=== PATIENT | female | born 1980 | race Caucasian/White ===

== ENCOUNTER 2016-04-19 13:17 | Emergency (ER) | payer SELFPAY ==
[~2016-04-19] VITALS: Ht 167.6 cm; Wt 90.9 kg
[2016-04-19 13:27] VITALS: BP 140/76; TEMP 97.9
[2016-04-19] MEDS ORDERED: PEN-VEE K500 MG PO (13:31)
[2016-04-19] MEDS ORDERED: TYLENOL W/COD1 UDTAB PO (13:32)
[2016-04-19] MEDS ORDERED: PERCOCET 325 MG1 TA2 PO (15:31)
[2016-04-19 15:39] VITALS: PULSE 74
== END 2016-04-19 15:40 | disposition home or self-care (01) ==
LOC: COL.ER 13:17
DX: K08.89 Other specified disorders of teeth and supporting structures (principal)

== ENCOUNTER 2020-03-22 12:32 | Emergency (ER) | payer SELFPAY ==
[~2020-03-22] VITALS: Ht 167.6 cm; Wt 81.8 kg
[~2020-03-22 12:32] MED LIST: PEN-VEE K500 MG PO; PERCOCET 325 MG1 TA2 PO; TYLENOL W/COD1 UDTAB PO
[2020-03-22 12:34] VITALS: TEMP 98.5
[2020-03-22 13:28] LABS: BASO # 0.1 (0.0-0.2); BASO % 0.5 % (0.0-2.0); EOS # 0.1 (0.0-0.7); EOS % 0.7 % (0-4.0); GRAN # 8.3 (1.4-6.5); GRAN % 77.3 % (42.2-75.2); HEMATOCRIT 41.3 % (37.0-47.0); HEMOGLOBIN 13.5 g/dl (12.5-16.0); LYMPH # 1.8 (1.2-3.4); LYMPH % 16.3 % (20.0-51.0); MEAN CELL VOLUME 82 fl (80.0-100.0); MEAN CORPUSCULAR HEMOGLOBIN 27 pg (27.0-31.0); MEAN CORPUSCULAR HGB CONC 33 g/dl (33.0-37.0); MEAN PLATELET VOLUME 10.2 fl (7.4-10.4); MONO # 0.5 (0.1-0.6); MONO % 4.8 % (1.7-9.3); PLATELET COUNT 283 K/mm3 (130-400); RED BLOOD COUNT 5.04 M/mm3 (4.10-5.30); REDCELL DISTRIBUTION WIDTH-CV 12.8 % (11.5-14.5)
[2020-03-22 13:37] LABS: ALBUMIN 4.4 gm/dL (3.5-5.0); BILIRUBIN,TOTAL 0.5 mg/dL (0.0-1.0); CALCIUM 9.6 mg/dL (8.4-10.2); CREATININE, serum 0.68 (0.52-1.25); POTASSIUM 4.3 mmol/L (3.4-5.0)
[2020-03-22 14:08] LABS: THYROID STIMULATING HORMONE 4.7 uIU/mL (0.465-4.680)
[2020-03-22 14:11] LABS: COLLECTION METHOD CLEAN CATCH
[2020-03-22 14:17] LABS: MUCOUS Present /lpf; PH 5 (5-8); SQUAMOUS EPITHELIAL 0-2 /hpf; URINE APPEARANCE Clear; URINE BACTERIA None Seen /hpf; URINE BILIRUBIN Negative (NEGATIVE); URINE BLOOD Negative (NEGATIVE); URINE COLOR Yellow; URINE GLUCOSE Negative (NEGATIVE); URINE KETONE Negative (NEGATIVE); URINE LEUKOCYTE ESTERASE Negative (NEGATIVE); URINE NITRATE Negative (NEGATIVE); URINE PROTEIN(semi-quant) Negative (NEGATIVE); URINE RBC 0-2 /hpf; URINE UROBILINOGEN Negative (NEGATIVE); URINE WBC 0-2 /hpf
[2020-03-22 14:41] LABS: TRICYCLIC ANTIDEPRESS URINE NEGATIVE
[2020-03-22] MEDS ORDERED: KEPPRA 500MG500 MG PO (15:23)
[2020-03-22 15:41] VITALS: BP 148/83; PULSE 107
== END 2020-03-22 15:40 | disposition home or self-care (01) ==
LOC: COL.ER 12:32
PROVIDERS: Emergency Medicine
DX: G40.409 Other generalized epilepsy and epileptic syndromes, not intractable, without status epilepticus (principal); K08.89 Other specified disorders of teeth and supporting structures